=== PATIENT | female | born 1960 | race African-American/Black ===

== ENCOUNTER 2018-01-22 19:51 | Emergency (ER) | payer MEDICAID ==
[~2018-01-22] VITALS: Ht 172.7 cm; Wt 95.0 kg
[2018-01-22] MEDS ORDERED: KETOROLAC 30MG/ML VIAL IM ONE (23:30)
[2018-01-23 00:20] VITALS: BP 121/78
== END 2018-01-23 00:24 | disposition home or self-care (01) ==
LOC: ER 20:55
DX: K02.9 Dental caries, unspecified (principal); F11.10 Opioid abuse, uncomplicated
CPT/HCPCS: 96372; 99283; J1885; Z7610

== ENCOUNTER 2020-06-25 15:00 | Emergency (ER) | payer MEDICAID ==
[~2020-06-25] VITALS: Ht 170.2 cm; Wt 65.0 kg
[2020-06-25] MEDS ORDERED: ONDANSETRON HCL 4MG/2ML INJ IV STA (17:15)
[2020-06-25] MEDS ORDERED: MAGNESIUM/ALUMINUM HYDROXIDE/SIMETHICONE 30ML UDC PO ONE (17:15)
[2020-06-25] MEDS ORDERED: SODIUM CHLORIDE 0.9% 1,000 ML IV ONE (17:15)
[2020-06-25] MEDS ORDERED: MORPHINE SULFATE 4 MG/ML CPJ (NOT FOR IM USE) IV STA (17:15)
[2020-06-25] MEDS ORDERED: KETOROLAC 30MG/ML VIAL IV STA (17:15)
[2020-06-25] MEDS ORDERED: VISCOUS LIDOCAINE 2% 15 ML UDC PO ONE (17:15)
[2020-06-25 17:52] VITALS: BP 117/83
[2020-06-25 18:01] LABS: BASOPHILS % 0.9 % (0.0-2.0); EOSINOPHILS % 0.9 % (0.0-5.0); HEMATOCRIT. 46.3 % (36.0-48.0); LYMPHOCYTES % 20.6 % (20.0-50.0); MEAN CORPUSCULAR HEMOGLOBIN 27.8 pg (28.0-32.0); MEAN CORPUSCULAR VOLUME 85.5 fL (81.0-99.0); MEAN PLATELET VOLUME 7.6 fl (7.4-10.4); MONOCYTES % 4.5 % (2.0-8.0); NEUTROPHILS % 73.1 % (40.0-76.0); PLATELET 301 x1000/uL (130-400); RED BLOOD CELL COUNT 5.41 mill/uL (4.2-5.4); RED CELL DISTRIBUTION WIDTH 13.7 % (11.6-14.6)
[2020-06-25 18:06] LABS: CHLORIDE 102 mEq/L (98-107)
== END 2020-06-25 19:00 | disposition home or self-care (01) ==
LOC: ER 15:00
DX: R07.89 Other chest pain (principal); R19.7 Diarrhea, unspecified; K21.9 Gastro-esophageal reflux disease without esophagitis
CPT/HCPCS: 36415; 71045; 80053; 83690; 83880; 84484; 85025; 93005; 96374; 96375; 99285; J1885; J2270; J7030

== ENCOUNTER 2020-12-07 09:12 | Emergency (ER) | payer MEDICAID ==
[~2020-12-07] VITALS: Ht 167.6 cm; Wt 65.0 kg
[2020-12-07] MEDS ORDERED: LIDOCAINE HCL/PF 1% 10 MG/ML 5ML VIAL IJ ONE (09:45)
[2020-12-07] MEDS ORDERED: BACITRACIN ZINC OINT UDPKT TOP ONE (09:45)
[2020-12-07] MEDS ORDERED: TETANUS, DIPHTHERIA, PERTUSSIS VAC/PF 0.5ML (>7YR OLD) IM ONE (09:45)
[2020-12-07] MEDS ORDERED: ACETAMINOPHEN 500MG TABLET PO ONE (09:45)
[2020-12-07] MEDS ORDERED: CEPH500C2 PO (10:37)
[2020-12-07 10:39] VITALS: BP 130/77
[2020-12-07] MEDS ORDERED: ACET-2708 PO (10:43)
== END 2020-12-07 10:54 | disposition home or self-care (01) ==
LOC: ER 09:47
DX: S61.411A Laceration without foreign body of right hand, initial encounter (principal); W25.XXXA Contact with sharp glass, initial encounter; Y93.89 Activity, other specified; Y92.89 Other specified places as the place of occurrence of the external cause; Z23 Encounter for immunization
CPT/HCPCS: 12002; 90471; 90715; 99283; J3490; Z7610

== ENCOUNTER 2023-03-19 17:24 | Inpatient (IN) | payer MEDICAID ==
[~2023-03-19] VITALS: Ht 167.6 cm; Wt 83.5 kg
[~2023-03-19 17:24] MED LIST: ACET-2708 PO; CEPH500C2 PO
[2023-03-19] MEDS ORDERED: ONDANSETRON HCL 4MG/2ML INJ IV STA (17:33)
[2023-03-19] MEDS ORDERED: MECLIZINE 25MG TABLET PO ONE (17:45)
[2023-03-19] MEDS ORDERED: SODIUM CHLORIDE 0.9% 1,000 ML IV ONE (17:45)
[2023-03-19] MEDS ORDERED: MECLIZINE 12.5MG TABLET PO NR (18:00)
[2023-03-19 18:36] LABS: BASOPHILS % 0.5 % (0.0-2.0); EOSINOPHILS % 2.6 % (0.0-5.0); HEMOGLOBIN. 11.6 g/dL (12.0-16.0); LYMPHOCYTES % 30.2 % (20.0-50.0); MEAN CORPUSCULAR HEMOGLOBIN 26.8 pg (28.0-32.0); MEAN CORPUSCULAR VOLUME 82.8 fL (81.0-99.0); MEAN PLATELET VOLUME 7.9 fl (7.4-10.4); MONOCYTES % 4.5 % (2.0-8.0); NEUTROPHILS % 62.2 % (40.0-76.0); PLATELET 311 x1000/uL (130-400); RED BLOOD CELL COUNT 4.35 mill/uL (4.2-5.4); RED CELL DISTRIBUTION WIDTH 15.2 % (11.6-14.6)
[2023-03-19 18:48] LABS: CHLORIDE 107 mEq/L (98-107)
[2023-03-19 20:19] LABS: CLARITY URINE CLEAR (CLEAR); COLOR URINE YELLOW (YELLOW); KETONES URINE NEGATIVE (NEGATIVE); LEUKOCYTE ESTERASE URINE NEGATIVE (NEGATIVE); NITRITE URINE NEGATIVE (NEGATIVE); OCCULT BLOOD URINE NEGATIVE (NEGATIVE); PH URINE 7.5 (4.5-8.0); PROTEIN URINE NEGATIVE (NEGATIVE); SPECIFIC GRAVITY URINE 1.004 (1.005-1.030); UROBILINOGEN URINE 0.2 E.U./dL (0.2-1.0)
[2023-03-19] MEDS ORDERED: METOCLOPRAMIDE HCL 10MG/2ML VIAL IV ONE (20:45)
[2023-03-19] MEDS ORDERED: ASPIRIN 81MG TABLET PO ONE (21:00)
[2023-03-20 00:15] VITALS: BP 144/70
[2023-03-20 00:30] VITALS: BP 144/70
[2023-03-20] MEDS ORDERED: T3 PO (00:44)
[2023-03-20] MEDS ORDERED: ASPI-1497 PO (00:44)
[2023-03-20] MEDS ORDERED: ONDANSETRON HCL 4MG/2ML INJ IV PRN (00:45)
[2023-03-20] MEDS: ACETAMINOPHEN WITH CODEINE 300/30MG TABLET PO PRN ×2 (01:30→11:04)
[2023-03-20 04:00] VITALS: BP 145/79
[2023-03-20] MEDS ORDERED: PANTOPRAZOLE 40MG DR TABLET PO SCH (06:40)
[2023-03-20 07:58] VITALS: BP 136/58
[2023-03-20 08:11] LABS: BASOPHILS % 0.6 % (0.0-2.0); EOSINOPHILS % 1.7 % (0.0-5.0); HEMATOCRIT. 34.3 % (36.0-48.0); HEMOGLOBIN. 11.3 g/dL (12.0-16.0); LYMPHOCYTES % 29.3 % (20.0-50.0); MEAN CORPUSCULAR HEMOGLOBIN 27.2 pg (28.0-32.0); MEAN CORPUSCULAR VOLUME 82.3 fL (81.0-99.0); MEAN PLATELET VOLUME 8.2 fl (7.4-10.4); NEUTROPHILS % 63.4 % (40.0-76.0); PLATELET 300 x1000/uL (130-400); RED BLOOD CELL COUNT 4.16 mill/uL (4.2-5.4); RED CELL DISTRIBUTION WIDTH 15.1 % (11.6-14.6)
[2023-03-20] MEDS ORDERED: ASPIRIN 81MG TABLET PO SCH (09:00)
[2023-03-20 09:16] LABS: CHLORIDE 113 mEq/L (98-107); HDL CHOLESTEROL 49 mg/dL (40-59); LDL CHOLESTEROL 67 mg/dL (5-100)
[2023-03-20] MEDS ORDERED: MECL-159 MT (11:49)
[2023-03-20 12:00] VITALS: BP_SYST 133; BP_SYST 142; BP_SYST 149; BP_DIAS 73; BP_DIAS 74; BP_DIAS 86
[2023-03-20] MEDS ORDERED: NALOXONE HCL 0.4MG/ML VIAL IV PRN (12:00)
[2023-03-20] MEDS ORDERED: MECLIZINE 25MG TABLET PO NR (12:00)
[2023-03-20 13:53] VITALS: BP 133/86
[2023-03-20 14:59] LABS: *AMPHETAMINES SCREEN URINE NEGATIVE (NEGATIVE); *BARBITURATES SCREEN URINE NEGATIVE (NEGATIVE); *BENZODIAZEPINES SCREEN URINE NEGATIVE (NEGATIVE); *COCAINE SCREEN URINE NEGATIVE (NEGATIVE); CANNABINOID URINE SCREEN NEGATIVE (NEGATIVE); METHADONE URINE SCREEN NEGATIVE (NEGATIVE); OPIATES URINE SCREEN PRESUMTIVE POSITIVE (NEGATIVE); PHENCYCLIDINE URINE SCREEN NEGATIVE (NEGATIVE)
[2023-03-20] MEDS ORDERED: ATORVASTATIN CALCIUM 20MG TABLET PO SCH (21:00)
== END 2023-03-20 15:10 | disposition home or self-care (01) | DRG 48 ==
LOC: ER 17:24 → 7EST 21:17 → EDBEDREQ 21:21 → ENRESERV 22:48
PROVIDERS: ADMIT Internal Medicine; ATTEND Internal Medicine
DX: G90.8 Other disorders of autonomic nervous system (principal); E78.00 Pure hypercholesterolemia, unspecified; K21.9 Gastro-esophageal reflux disease without esophagitis; E78.5 Hyperlipidemia, unspecified; Z88.6 Allergy status to analgesic agent; Z88.8 Allergy status to other drugs, medicaments and biological substances; Z79.899 Other long term (current) drug therapy
CPT/HCPCS: 36415; 71045; 80048; 80053; 80061; 80305; 81003; 84484; 85025; 93005; 99285; J2405; J2765; J7030; J8597

== ENCOUNTER 2025-07-05 17:46 | Emergency (ER) | payer MEDICAID ==
[~2025-07-05] VITALS: Ht 170.2 cm; Wt 72.0 kg
[~2025-07-05 17:46] MED LIST changes: +ASPI-1497 PO; -CEPH500C2 PO; +MECL-299 MT; +T3 PO
[2025-07-05 17:50] VITALS: O2SAT 99
[2025-07-05 18:00] VITALS: BP 154/97; PULSE 80; RESP 18; TEMP 36.7; O2SAT 99
== END 2025-07-05 19:55 | disposition home or self-care (01) ==
LOC: ER 17:53
DX: M79.642 Pain in left hand (principal); E78.00 Pure hypercholesterolemia, unspecified; Z88.5 Allergy status to narcotic agent; Z88.6 Allergy status to analgesic agent; Z79.82 Long term (current) use of aspirin; Z79.899 Other long term (current) drug therapy; Y00.XXXA Assault by blunt object, initial encounter; Y93.89 Activity, other specified; Y92.89 Other specified places as the place of occurrence of the external cause; Y99.8 Other external cause status
CPT/HCPCS: 73120; 99283